=== PATIENT | male | born 1970 | race Caucasian/White ===

== ENCOUNTER 2020-05-26 12:50 | Emergency (ER) | payer OTHER ==
[~2020-05-26] VITALS: Ht 188 cm; Wt 97.2 kg
[2020-05-26 13:48] LABS: URINE BILIRUBIN NEGATIVE (Negative); URINE BLOOD 2+ (Negative); URINE CLARITY CLEAR; URINE COLOR YELLOW; URINE GLUCOSE-RANDOM* NEGATIVE (Negative); URINE KETONES NEGATIVE (Negative); URINE LEUKOCYTES-REFLEX NEGATIVE (Negative); URINE NITRITE-REFLEX NEGATIVE (Negative); URINE PROTEIN (DIPSTICK) NEGATIVE (Negative); URINE SPECIFIC GRAVITY >= 1.030 (1.005-1.035); URINE UROBILINOGEN 0.2 E.U./dl (0.2-1.0)
[2020-05-26 14:00] LABS: SQUAMOUS 0-3 Few /LPF (0-3); URINE RBC 3-10 Few /HPF (0-2)
[2020-05-26 14:01] LABS: BACTERIA-REFLEX 1-9 Few /HPF (None Seen); CASTS None Seen /LPF (None Seen); CRYSTALS None Seen /LPF (None Seen); URINE WBC-REFLEX 0-5 Rare /HPF (0-5)
[2020-05-26 14:42] LABS: BASOPHILS 0.7 % (0.0-2.0); EOSINOPHILS 0.3 % (0.0-3.0); HEMATOCRIT 44.3 % (42.0-52.0); LYMPHOCYTES 8.4 % (24.0-44.0); MCH 29.4 pg (26.0-34.0); MCHC 33.8 g/dL (28.0-37.0); MONOCYTES 5.9 % (1.0-8.0); PLATELET COUNT 235 thou/uL (150-400); POLYS 84.7 % (36.0-66.0); RBC 5.09 mil/uL (4.50-6.00); RDW 12.6 % (10.5-14.5); WBC 11.7 thou/uL (4.0-11.0)
[2020-05-26 14:59] LABS: CREATININE 1.3 mg/dL (0.7-1.3); POTASSIUM 4.5 mmol/L (3.5-5.1)
[2020-05-26 15:05] LABS: ALBUMIN 3.7 g/dL (3.4-5.0); TOTAL BILIRUBIN 0.4 mg/dL (0.2-1.0); TOTAL PROTEIN 7.6 g/dL (6.4-8.2)
[2020-05-26] MEDS ORDERED: ZOFRAN ODT4 MG PO (15:11)
[2020-05-26] MEDS ORDERED: FLOMAX0.4 MG PO (15:11)
[2020-05-26] MEDS ORDERED: NORCO 5-325 TA1 EAC2 PO (15:16)
[2020-05-26 16:00] VITALS: BP 130/76
== END 2020-05-26 15:59 | disposition home or self-care (01) ==
LOC: ER 12:50
PROVIDERS: Physician Assistant
DX: N20.0 Calculus of kidney (principal); F17.210 Nicotine dependence, cigarettes, uncomplicated

== ENCOUNTER 2020-07-29 18:42 | Emergency (ER) | payer OTHER ==
[~2020-07-29] VITALS: Ht 190.5 cm; Wt 99.8 kg
[~2020-07-29 18:42] MED LIST: FLOMAX0.4 MG PO; NORCO 5-325 TA1 EAC2 PO; ZOFRAN ODT4 MG PO
[2020-07-29 19:42] LABS: URINE BILIRUBIN NEGATIVE (Negative); URINE BLOOD NEGATIVE (Negative); URINE CLARITY CLEAR; URINE COLOR YELLOW; URINE GLUCOSE-RANDOM* NEGATIVE (Negative); URINE KETONES NEGATIVE (Negative); URINE LEUKOCYTES-REFLEX NEGATIVE (Negative); URINE NITRITE-REFLEX NEGATIVE (Negative); URINE PROTEIN (DIPSTICK) NEGATIVE (Negative); URINE SPECIFIC GRAVITY >= 1.030 (1.005-1.035); URINE UROBILINOGEN 0.2 E.U./dl (0.2-1.0)
[2020-07-29 19:42] LABS: ABSOLUTE NEUTROPHILS 3.9 thou/uL (1.4-8.2); BASOPHILS 1.1 % (0.0-2.0); EOSINOPHILS 3.4 % (0.0-3.0); HEMATOCRIT 43.8 % (42.0-52.0); HEMOGLOBIN 14.9 gm/dL (14.0-18.0); LYMPHOCYTES 32.3 % (24.0-44.0); MCH 29.7 pg (26.0-34.0); MCHC 34.1 g/dL (28.0-37.0); MONOCYTES 9.5 % (1.0-8.0); PLATELET COUNT 223 thou/uL (150-400); POLYS 53.7 % (36.0-66.0); RBC 5.03 mil/uL (4.50-6.00); RDW 12.8 % (10.5-14.5); WBC 7.2 thou/uL (4.0-11.0)
[2020-07-29 19:51] LABS: CALCIUM 9.5 mg/dL (8.5-10.1); POTASSIUM 3.8 mmol/L (3.5-5.1)
[2020-07-29] MEDS ORDERED: TIZANIDINE4 MG/1 TA1 PO (20:38)
[2020-07-29] MEDS ORDERED: MOBIC7.5 MG PO (20:38)
[2020-07-29] MEDS ORDERED: HYDROCODON-ACE1 EAC7 PO (22:35)
[2020-07-29 22:41] VITALS: BP 140/90
--- NOTE | 2020-07-30 07:14 | EKG ---
[address] [address] ELECTROCARDIOGRAM REPORT Name: SPLIZZY CHAVEZ Room #: [facility]#: [id number] Admission: 07/29/20 Attend Phys: Discharge: 07/29/20 Date of : 66 Report #: [id number] [facility] ED Test Date: 2020-07-29 Test Time: 19:51:55 Pat Name: LIZZY SNOWDEN Department: Room: Gender: Health Inspector: CYNDIE : 1970 Requested By: Chavez Zhou Order Number: [id number] MD: Jem Romero Measurements Intervals Iaeger Rate: 69 P: 21 DC: 167 QRS: -51 QRSD: 104 T: 3 QT: 387 QTc: 415 Interpretive Statements Sinus rhythm Inferior infarct, old No previous ECG available for comparison Electronically Signed On 07-30-2020 7:14:37 [employer] by Jem Romero [email or web address] <ELECTRONICALLY SIGNED> By: Jem Romero MD, [facility] 07/30/20 0714 50 50 Jem Romero MD, FACC /EPI
== END 2020-07-29 22:41 | disposition home or self-care (01) ==
LOC: ER 18:42
PROVIDERS: Nurse Practitioner
DX: N20.0 Calculus of kidney (principal); F17.210 Nicotine dependence, cigarettes, uncomplicated; Z79.899 Other long term (current) drug therapy